=== PATIENT | female | born 1995 | race Caucasian/White ===

== ENCOUNTER 2016-06-23 16:27 | Observation (INO) | payer OTHER ==
[~2016-06-23] VITALS: Ht 160 cm; Wt 50.4 kg
[2016-06-23] MEDS ORDERED: LAMO25TA PO (16:50)
[2016-06-23] MEDS ORDERED: SERT50TA PO (16:50)
[2016-06-23] MEDS ORDERED: ACET-1256 PO (16:50)
[2016-06-23] MEDS ORDERED: ONDANSETRON INJ 2 MG/ML 2 ML VIAL IV STA ×2 (17:04)
[2016-06-23] MEDS ORDERED: GLUCAGON FOR INJ 1 MG VIAL IV STA (17:04)
--- NOTE | 2016-06-23 17:09 | EMERGENCY ROOM VISIT NOTE ---
History Report prepared by Lynn: Yoan Ac Under the Supervision of: Dr. Chin Martinez M.D. First contact with patient: 16:53 Chief Complaint: THROAT PAIN/INJURY Stated Complaint: CANT SWALLOW History of Present Illness The patient is a 20 year old female who presents to the Emergency Room with complaints of constantly being unable to swallow since prior to arrival. The patient took a Tylenol for knee pain, which is now stuck in her throat. She is having secretions. She has been unable to swallow since then. The throat is not sore or painful. The patient normally has trouble swallowing pills, and often only takes half a pill. Today she decided to take a whole Tylenol. Source of History: patient Onset: earlier today Position: throat Quality: other (cannot swallow) Timing: constant Associated Symptoms: No sorethroat Review of Systems See HPI for pertinent positives & negatives. A total of 10 systems reviewed and were otherwise negative. Past Medical & Surgical Medical Problems: (1) Bipolar II disorder Surgical Problems: (1) S/P tonsillectomy Family History Diabetes mellitus FH: cancer FH: heart disease FH: lung disease Hypertension Kidney disease Social History Smoking Status: Never Smoker Alcohol Use: occasionally Housing Status: lives with roommate Occupation Status: unemployed Current/Historical Medications Scheduled Acetaminophen (Tylenol), 500 MG PO DIRECTED Lamotrigine (Lamictal), 50 MG PO DAILY Sertraline (Zoloft), 50 MG PO DAILY Allergies Coded Allergies: Cefuroxime (Unverified Allergy, Unknown, UNKNOWN, 06/23/16) Sulfamethoxazole w/Trimethoprim (Unverified Allergy, Unknown, UNKNOWN, ) Physical Exam Vital Signs Date Time Temp Pulse Resp B/P Pulse Ox O2 Delivery O2 Flow Rate FiO2 06/23/16 18:33 78 20 112/67 98 Room Air 06/23/16 16:42 96 Room Air 06/23/16 16:40 37.0 69 20 116/77 97 Room Air Physical Exam CONSTITUTIONAL: Uncomfortable appearing. HEENT: No icterus, moist mucous membranes Unable to tolerate secretions. NECK: No meningismus, trachea is midline. CARDIOVASCULAR: Regular rate, normal perfusion RESPIRATORY: Unlabored breathing. Clear to auscultation. GASTROINTESTINAL: Non-tender GENITOURINARY: No flank tenderness MUSCULOSKELETAL: Full range of motion NEUROLOGIC: No acute gross focal deficits. PSYCHIATRIC: Normal affect SKIN: Normal for ethnicity. Medical Decision & Procedures Laboratory Results Test 06/23/16 17:52 06/23/16 19:10 Bedside Hemoglobin 15.3 g/dl (12.0-16.0) Bedside Hematocrit 45 % (37-47) Bedside Sodium 143 mEq/L (135-144) Bedside Potassium 4.3 mEq/L (3.3-5.0) Bedside Chloride 104 mEq/L (101-112) Bedside Total CO2 25 mEq/l (24-31) Anion Gap 19.0 mmol/L (16-25) Bedside Blood Urea Nitrogen 21 mg/dl (7-18) Bedside Creatinine 0.8 mg/dl Bedside Glucose (other) 63 mg/dl (70-99) Bedside Ionized Calcium (Nima) 1.18 mmol/l Human Chorionic Gonadotropin, Qual NEG (NEG) Labs reviewed by ED physician. Medications Administered Medications (Trade) Dose Ordered Sig/Noemi Route Start Time Stop Time Status Last Admin Dose Admin Ondansetron HCl (Zofran Inj) 4 mg NOW STAT IV 06/23/16 17:04 06/23/16 17:06 DC 06/23/16 17:44 4 MG Glucagon (Glucagon Inj) 2 mg NOW STAT IV 06/23/16 17:04 06/23/16 17:06 DC 06/23/16 17:04 2 MG ED Course 1700: Past medical records reviewed. The patient was evaluated in room B6. A complete history and physical examination was performed. 1704: Glucagon 2 mg IV, Zofran 4 mg IV. 1832: Discussed the case with the clinical consultant Ict Teacher. They are aware of the situation. 2000: The patient is being evaluated by Dr. Wray, Ict Teacher. She will have an EGD. Medical Decision Differential diagnosis includes esophageal impaction. 20-year-old presented to the emergency department several hours after swallowing a Tylenol pill which she had taken for mild knee pain and subsequently being unable to tolerate her secretions since then. She was given glucagon 2 mg IV and observed in the emergency room for 2 hours. Despite this she was unable to drink fluids as she would vomit. Therefore, GI consultation with Dr. Wray whom will evaluate pt. Impression Primary Impression: Impacted esophageal foreign body Scribe Attestation The scribe's documentation has been prepared under my direction and personally reviewed by me in its entirety. I confirm that the note above accurately reflects all work, treatment, procedures, and medical decision making performed by me. Departure Information Dispostion Other (Being Evaluated By Specialist) Patient Instructions My [facility]
[2016-06-23 18:08] LABS: ISTAT CREATININE 0.8 mg/dl; ISTAT HEMOGLOBIN 15.3 g/dl (12.0-16.0); ISTAT IONIZED CALCIUM 1.18 mmol/l
[2016-06-23] MEDS ORDERED: ATROPINE SULFATE 0.1 MG/ML 5ML SYR IV PRN (19:45)
[2016-06-23] MEDS ORDERED: PROMETHAZINE HCL INJ 6.25 MG in SODIUM CHLORIDE 0.9% 50ML 50 ML IV PRN (19:45)
[2016-06-23] MEDS ORDERED: ONDANSETRON INJ 2 MG/ML 2 ML VIAL IV PRN ×2 (19:45→23:45)
[2016-06-23] MEDS ORDERED: FENTANYL CITRATE INJ 50 MCG/1 ML 2 ML VIAL IV PRN (19:45)
[2016-06-23] MEDS ORDERED: EpHEDrine SULFATE INJ 50 MG/ML AMP IV PRN (19:45)
[2016-06-23 19:48] LABS: PREG INTERNAL NEGATIVE QC NEG CLEAR BACKGROUND; PREG INTERNAL POSITIVE QC POS CONTROL LINE
--- NOTE | 2016-06-23 20:05 | Gastroenterology Progress Note ---
Progress Note Date of Service: Jun 23, 2016 Subjective Pt evaluation today including: conversation w/ patient, physical exam, chart review, lab review, review of studies, review of inpatient medication list Consult by ER physician Dr Martinez for foreign body in esohagus CC pill stuck in esohagus HPI Pt has problems with swallowing pills and also occosional solid food slowing in esophagus for as long as she can remember. Never had to go to ER. Has some throat burning issues.Normally only takes about half a tylenol for knee pain. This am no breakfast but at 10 am took round generic acetaminophen and has not been able to handle saliva since. NO chest pain nor abd pain. NO gi bleeding, no change in bowels, no change in weight.No n/v. No liver disease or other GI diagnosis. NO blood relatives with esophageal problem. PMH Meds at home Tylenol, Zoloft, Lamotrigine Medical problems--depression Fhx neg for esophageal problems Shx Tob neg, ETOH once a month Review of Systems Constitutional: No chills, No fatigue, No fever, No problem reported, No see HPI, No sweats, No weakness, No weight loss Eyes: No diplopia, No discharge, No eye pain, No problem reported, No redness, No see HPI, No worsening of vision ENT: No dental problems, No hearing loss, No nasal symptoms, No pain on swallowing, No problem reported, No see HPI, No sore throat, No tinnitus, No trouble swallowing, No unusual epistaxis Respiratory: No cough, No dyspnea at rest, No dyspnea on exertion, No hemoptysis, No problem reported, No see HPI, No shortness of breath, No sputum, No wheezing Cardiac: No PND, No chest pain, No claudication, No edema, No orthopnea, No palpitations, No problem reported, No see HPI Musculoskeletal: + joint pain Neuro: No balance problems, No memory loss, No numbness/tingling, No paralysis , No problem reported, No see HPI, No vertigo, No weakness Psych: + depression symptoms Skin: No bleeding, No color change, No itch, No jaundice, No new/changing skin lesions, No problem reported, No rash, No see HPI Medications Current Inpatient Medications Medications (Trade) Dose Ordered Sig/Noemi Route Start Time Stop Time Status Last Admin Dose Admin Fentanyl Citrate (Fentanyl Inj) 50 mcg Q5M PRN IV 06/23/16 19:45 06/24/16 19:44 UNV Ondansetron HCl 4 mg 4 mg ONE PRN IV 06/23/16 19:45 UNV Promethazine HCl/ Sodium Chloride (Phenergan Inj/ Nss 50ml) 50.25 ml @ 202 mls/hr ONE PRN IV 06/23/16 19:45 UNV Ephedrine Sulfate (EpHEDrine SULFATE INJ) 5 mg Q5M PRN IV 06/23/16 19:45 06/24/16 19:44 UNV Atropine Sulfate (Atropine Sulfate 0.1MG/Ml Inj) 0.5 mg Q1M PRN IV 06/23/16 19:45 06/24/16 19:44 UNV Objective Vital Signs Date Time Temp Pulse Resp B/P Pulse Ox O2 Delivery O2 Flow Rate FiO2 06/23/16 18:33 78 20 112/67 98 Room Air 06/23/16 16:42 96 Room Air 06/23/16 16:40 37.0 69 20 116/77 97 Room Air Physical Exam General Appearance: WD/WN, no apparent distress ENT: hearing grossly normal, pharynx normal Neck: supple, no adenopathy Respiratory/Chest: lungs clear, normal breath sounds, no respiratory distress Cardiovascular: regular rate, rhythm, no edema Abdomen: normal bowel sounds, non tender, soft, no organomegaly, no pulsatile mass Neurologic/Psych: risk and insurance consultant II-XII nml as tested, alert, normal mood/affect, oriented x 3 Skin: normal color Laboratory Results Last 24 Hours Test 06/23/16 17:52 06/23/16 19:10 Bedside Hemoglobin 15.3 g/dl Bedside Hematocrit 45 % Bedside Sodium 143 mEq/L Bedside Potassium 4.3 mEq/L Bedside Chloride 104 mEq/L Bedside Total CO2 25 mEq/l Anion Gap 19.0 mmol/L Bedside Blood Urea Nitrogen 21 mg/dl Bedside Creatinine 0.8 mg/dl Bedside Glucose (other) 63 mg/dl Bedside Ionized Calcium (Nima) 1.18 mmol/l Human Chorionic Gonadotropin, Qual NEG Assessment and Plan Esophageal obstruction-- Dysphagia Discussed EGD with removal of foreign body versus chest operation to open esophagus. As discussed only reasonable option is EGD. Procedure and risks explained which include but not limited to medication reaction, bleeding, perforatin, aspiration, and missed lesions. Explained risk of bleeding and perforation increased with foreign body. Discussed the anesthesia may be deep sedation or general anesthesia depending on what we fine. Also goal is to remove foreign body not necessarily to treat condition causing it which would be done on f/u outpt EGD. Explained if esophagus already irritated want to minimize instrumentation.
[2016-06-23] MEDS ORDERED: PROPOFOL IV EMULSION 10 MG/ML 20 ML VIAL IV ONE (20:17)
[2016-06-23] MEDS ORDERED: LIDOCAINE HCL 2% 2 ML VIAL (20MG/ML) ONE (20:17)
[2016-06-23] MEDS ORDERED: SUCCINYLCHOLINE CHLORIDE 20 MG/ML 10 ML VIAL IV ONE (20:17)
[2016-06-23] MEDS ORDERED: ONDANSETRON INJ 2 MG/ML 2 ML VIAL ONE (20:17)
[2016-06-23] MEDS ORDERED: FENTANYL CITRATE INJ 50 MCG/1 ML 2 ML VIAL ONE (20:18)
[2016-06-23] MEDS ORDERED: ROCURONIUM BROMIDE 10 MG/ML 5 ML VIAL ONE (20:18)
--- NOTE | 2016-06-23 21:31 | Anesthesiology Progress Note ---
Anesthesia Post Op Note Date & Time Jun 23, 2016 at 21:31 Vital Signs Pain Intensity: 0 Vital Signs Past 12 Hours Date Time Temp Pulse Resp B/P Pulse Ox O2 Delivery O2 Flow Rate FiO2 06/23/16 18:33 78 20 112/67 98 Room Air 06/23/16 16:42 96 Room Air 06/23/16 16:40 37.0 69 20 116/77 97 Room Air Notes Mental Status: alert / awake / arousable, participated in evaluation Pt Amnestic to Procedure: Yes Nausea / Vomiting: adequately controlled Pain: adequately controlled Airway Patency, RR, SpO2: stable & adequate BP & HR: stable & adequate Hydration State: stable & adequate Anesthetic Complications: no major complications apparent
--- NOTE | 2016-06-23 21:36 | GI REPORT ---
Procedure Date: 06/23/2016 8:24 PM THIS REPORT HAS BEEN AMENDED Addendum Number: 1 Addendum Date: 06/23/2016 9:37:19 PM Pictures taken during the case and inadvertently not added to report. Addendum Number: 2 Addendum Date: 06/23/2016 9:43:51 PM was able to recover pictures as noted above now Procedure: Upper GI endoscopy Indications: Foreign body in the esophagus Medicines: General Anesthesia Complications: No immediate complications. Estimated blood loss: Minimal. Estimated Blood Loss: Estimated blood loss was minimal. Procedure: Pre-Anesthesia Assessment: - The risks and benefits of the procedure and the sedation options and risks were discussed with the patient. All questions were answered and informed consent was obtained. - Patient identification and proposed procedure were verified prior to the procedure by the physician, the anesthesiologist and the central sterilization technician. The procedure was verified in the procedure room. - Procedure and risks explained to patient which include but not limited to medication reaction, bleeding, perforation, aspiration , and missed lesions. After obtaining informed consent, the endoscope was passed under direct vision. Throughout the procedure, the patient's blood pressure, pulse, and oxygen saturations were monitored continuously. The scope was introduced through the mouth, and advanced to the middle third of esophagus. Judicious gas insufflation was used and gas removal done on the way out. The lumen was always visualized when advancing the scope. Scope passed easily past upper esophageal sphincter and advanced to where pill noted at 20 cm in mid esophagus. Julien forceps used to attempt to bring pill up but broke pill into fragments which passed. There was stricture noted where pill was obstructed. Stricture with probable ulceration was noted to be smaller than the scope so did not attempt to advance furher. Did lavage esophagus with 300 ml of fluid and none came up suggesting no further obstruction. No damage from manipulation noted. Was bringing scope back out to examine the upper esophagus and fresh mucosal laceration noted. No obvious perforation. Placed one clip to attempt to close this but only one side held. Was able to successfully use second clip to close in mid portion and seemed successful. Very small area to work so was not able to place further clips for fear would damage esophagus. Other than pill nothing else in esophagus.. The upper GI endoscopy was accomplished with ease. The patient tolerated the procedure well. Findings: Mucosal changes including ringed esophagus, feline appearance, small-caliber esophagus and crepe paper esophagus were found in the upper third and middle third of the esophagus. Pill were found in the middle third of the esophagus. Removal was accomplished with a Julien grasper. A bleeding mucosal tear as a result of scope trauma was found in the upper third of the esophagus. This was large in size. To prevent bleeding, one hemostatic clips were successfully placed and a second only held on one edge. There was no bleeding at the end of the procedure. Estimated blood loss was minimal. Impression: - Esophageal mucosal changes suspicious for eosinophilic esophagitis. - Pill were found in the esophagus. Removal was successful. - Incidental mucosal tear in the upper third of the esophagus. No difficulty passing scope and no obvious stricture so suggest mucosa tears easily from esosinophilic esophagitis. Clips were placed. Recommendation: - Admit the patient to [facility]. - Discussed with DR Rice of hospitalist service who will admit and told him low threshold to get CT of chest if has any signs of esophageal perforation and to keep NPO with IVF for now. Dru Wray M.D. Dru Wray MD 06/23/2016 9:35:59 PM This report has been signed electronically. Note Initiated On: 06/23/2016 8:24 PM Dru Wray M.D. Dru Wray MD 06/23/2016 9:38:29 PM This report has been signed electronically. Dru Wray M.D. rDu Wray MD 06/23/2016 9:44:16 PM This report has been signed electronically.
--- NOTE | 2016-06-23 22:04 | Progress Note ---
Progress Note Pt seen in ICU recovery bed. Awake and alert. Can swallow. No abdominal pain or chest pain. Minimal sore throat. Explained procedure and mucosal tear upper esopahagus noted with need for inpatient overnight observation. Chest clear, no crepitus. abdomen positive bowel sounds, no guarding nor rebound. [facility]
[2016-06-23] MEDS ORDERED: LORAZEPAM 2 MG/ML 1 ML VIAL IV STA (23:38)
[2016-06-23 23:58] VITALS: BP 108/63; PULSE 83; TEMP 36.9; O2SAT 95; Ht 160 cm; Wt 50.4 kg
[2016-06-24] MEDS ORDERED: LORAZEPAM INJ 0.5 MG in SYRINGE 0.75 ML IV STA (00:08)
[2016-06-24] MEDS: D5W AND NSS 1,000 ML IV SCH ×2 (00:22→07:53)
[2016-06-24] MEDS: ACETAMINOPHEN IV 1,000 MG in EMPTY BAG 0 ML IV SCH ×2 (00:27→07:53)
[2016-06-24 00:34] VITALS: BP 102/60; PULSE 73; TEMP 36.9; O2SAT 96
[2016-06-24] MEDS ORDERED: IV FLUIDS COMPLETED PRN (00:45)
[2016-06-24 02:13] VITALS: BP 85/52; PULSE 73; TEMP 36.6; O2SAT 96
--- NOTE | 2016-06-24 02:24 | History and Physical ---
History & Physical Date & Time of Service: Jun 24, 2016 at 02:15 Chief Complaint: Esophagitis Primary Care Physician: No Doctor, Assigned History of Present Illness Source: patient 20 y/o F w/Hx Bipolar disease and dysphagia. She has a tendency to get pills stuck in her throat which occurred this evening after she took some tylenol. The associated discomfort did not resolve and she felt like she could not swallow her salive. She presented to the ER for evaluation. She was evaluated by the GI service and underwent endoscopy where pill fragments were successfully removed. The endoscopy also revealed a considerable esophageal stricture in addition to a mucosal tear which required clipping. She is admitted for overnight observation to monitor for bleeding. She denies symptoms of pain or N/V post endoscopy. Past Medical/Surgical History Medical Problems: (1) Bipolar II disorder Status: Chronic 2) Dysphagia with episodes of pill esophagitis Surgical Problems: (1) S/P tonsillectomy Status: Resolved Family History Diabetes mellitus FH: cancer FH: heart disease FH: lung disease Hypertension Kidney disease Social History Smoking Status: Never Smoker Occupational Status: unemployed Allergies Coded Allergies: Cefuroxime (Unverified Allergy, Unknown, UNKNOWN, 06/23/16) Sulfamethoxazole w/Trimethoprim (Unverified Allergy, Unknown, UNKNOWN, ) Home Medications Scheduled Acetaminophen (Tylenol), 500 MG PO DIRECTED Lamotrigine (Lamictal), 50 MG PO DAILY Sertraline (Zoloft), 50 MG PO DAILY Review of Systems Constitutional: No chills, No fever, No sweats Eyes: No worsening of vision ENT: + problem reported (Pill stuck im throat), + sore throat, + trouble swallowing, No hearing loss, No nasal symptoms, No unusual epistaxis Respiratory: No cough, No sputum, No wheezing Musculoskeletal: No joint pain Genitourinary - Female: No dysuria, No urinary frequency, No urinary urgency Neurologic: No memory loss, No paralysis, No weakness Psychiatric: No depression symptoms Endocrine: No fatigue Hematologic / Lymphatic: No abnormal bleeding/bruising Integumentary: No rash Allergic / Immunologic: No environmental allergies Physical Exam Vital Signs Date Time Temp Pulse Resp B/P Pulse Ox O2 Delivery O2 Flow Rate FiO2 06/24/16 00:34 36.9 73 16 102/60 96 Room Air 06/24/16 00:09 Room Air 06/23/16 23:58 36.9 83 16 108/63 95 Room Air 06/23/16 23:45 77 18 112/86 97 Room Air 06/23/16 23:30 80 18 122/82 97 Room Air 06/23/16 23:15 72 18 118/75 96 Room Air 06/23/16 23:00 83 18 117/63 95 Room Air 06/23/16 22:45 84 18 109/78 95 Room Air 06/23/16 22:30 88 18 118/70 99 Room Air 06/23/16 22:20 76 18 116/75 99 Room Air 06/23/16 22:05 80 18 122/70 99 Room Air 06/23/16 21:55 36.3 79 18 128/76 99 Room Air 06/23/16 21:45 80 18 112/71 98 Room Air 06/23/16 21:35 71 16 122/73 98 Room Air 06/23/16 21:25 78 16 106/54 96 Room Air 06/23/16 21:15 36.4 70 16 127/86 94 Room Air 06/23/16 18:33 78 20 112/67 98 Room Air 06/23/16 16:42 96 Room Air 06/23/16 16:40 37.0 69 20 116/77 97 Room Air General Appearance: WD/WN, no apparent distress, + thin, + pertinent finding ( Pleasant young female resting comfortably ) Head: normocephalic Eyes: normal inspection ENT: normal ENT inspection, pharynx normal Neck: supple, no JVD Respiratory/Chest: chest non-tender, no accessory muscle use Cardiovascular: regular rate, rhythm, no edema, no gallop Abdomen/GI: normal bowel sounds, non tender, soft Back: normal inspection, no CVA tenderness Extremities/Musculoskelatal: normal inspection, no calf tenderness, normal capillary refill, no pedal edema, normal range of motion Neurologic/Psych: diamond setter apprentice II-XII nml as tested, no motor/sensory deficits, alert Skin: normal color, warm/dry, no rash Diagnostics Laboratory Results Results Past 24 Hours Test 06/23/16 17:52 06/23/16 19:10 Range/Units Bedside Hemoglobin 15.3 12.0-16.0 g/dl Bedside Hematocrit 45 37-47 % Bedside Sodium 143 135-144 mEq/L Bedside Potassium 4.3 3.3-5.0 mEq/L Bedside Chloride 104 101-112 mEq/L Bedside Total CO2 25 24-31 mEq/l Anion Gap 19.0 16-25 mmol/L Bedside Blood Urea Nitrogen 21 7-18 mg/dl Bedside Creatinine 0.8 mg/dl Bedside Glucose (other) 63 70-99 mg/dl Bedside Ionized Calcium (Nima) 1.18 mmol/l Human Chorionic Gonadotropin, Qual NEG NEG Impression Assessment and Plan 20 y/o F w/Hx Bipolar disease and dysphagia. She has a tendency to get pills stuck in her throat which occurred this evening after she took some Tylenol. The associated discomfort did not resolve and she presented to the ER for evaluation. She was evaluated by the GI service and underwent endoscopy where pill fragment were removed. The endoscopy also revealed a considerable esophageal stricture in addition to a mucosal tear which required treatment with clips. She is admitted for overnight observation to monitor for bleeding. She denies symptoms of pain, N/V post endoscopy. Pt will be monitored on the medical floor and reevaluated by GI in the AM - if there is no evidence of complications and she can tolerate PO, she can likely be D/Cd. She states that she can hold off on her Bipolar medication for a 24 hr period without issue SCDs for prophylaxis - full code Total time for this admit including med rec, review of andoscopy report - discussion with GI attending and pt 27 min Level of Care Med/Surg Advanced Directives Existing Advance Directive: No Existing Living Will: No Existing Power of Shipfitters Supervisor: No Resuscitation Status FULL RESUSCITATION VTE Prophylaxis VTE Risk Assessment Done? Y/N: Yes Risk Level: Very Low Given or contraindicated: SCD's
[2016-06-24 04:09] VITALS: BP 81/46; PULSE 66; TEMP 36.7; O2SAT 98
[2016-06-24 07:40] VITALS: BP 91/54; PULSE 70; TEMP 36.7; O2SAT 97
[2016-06-24 09:13] LABS: BASO % 0.4 %; BASO ABS # 0.02 K/uL (0-0.2); COMPLETE YES; HEMATOCRIT 38.6 % (37-47); LYMPH % 32.2 %; LYMPH ABS # 1.53 K/uL (1.2-3.4); MEAN CELL VOLUME 88.1 fL (80-100); MEAN CORPUSCULAR HEMOGLOBIN 30.4 pg (25-34); MEAN CORPUSCULAR HGB CONC 34.5 g/dl (32-36); MEAN PLATELET VOLUME 9.8 fL (7.4-10.4); MONO % 6.7 %; NEUT % 56.7 %; PLATELET COUNT 202 K/uL (130-400); RED BLOOD COUNT 4.38 M/uL (4.2-5.4); WHITE BLOOD COUNT 4.75 K/uL (4.8-10.8)
[2016-06-24] MEDS ORDERED: FLUTICASONE HFA 220 MCG INHALER INH SCH (11:30)
[2016-06-24 12:06] VITALS: BP 98/64; PULSE 65; TEMP 36.5; O2SAT 97
[2016-06-24] MEDS ORDERED: FLVHFA220 PO (13:29)
--- NOTE | 2016-06-24 15:05 | Gastroenterology Progress Note ---
Progress Note Date of Service: Jun 24, 2016 Subjective Pt evaluation today including: conversation w/ patient, physical exam, chart review, lab review, review of studies, review of inpatient medication list CC F/u dysphagia, esophageal mucosal tear HPI No abd pain nor chest pain. Tolerated clear liquids and full liquid diet. Review of Systems Respiratory: No shortness of breath Cardiac: No chest pain Medications Current Inpatient Medications Medications (Trade) Dose Ordered Sig/Noemi Route Start Time Stop Time Status Last Admin Dose Admin Ondansetron HCl 4 mg 4 mg Q6H PRN IV 06/23/16 23:45 07/23/16 23:44 Acetaminophen 1000 mg/Empty Bag 100 ml @ 400 mls/hr Q8H IV 06/24/16 00:00 07/24/16 00:00 06/24/16 07:53 400 MLS/HR Dextrose/Sodium Chloride (D5W And Nss) 1,000 ml @ 100 mls/hr Q10H IV 06/23/16 23:45 07/23/16 23:44 06/24/16 07:53 100 MLS/HR Miscellaneous (Iv Fluids Completed) 1 ea PRN PRN N/A 06/24/16 00:45 06/24/17 00:44 Fluticasone Propionate (Flovent Hfa 220MCG Inhaler) 2 puffs BID INH 06/24/16 11:30 07/24/16 11:29 06/24/16 11:30 2 PUFFS Objective Vital Signs Date Time Temp Pulse Resp B/P Pulse Ox O2 Delivery O2 Flow Rate FiO2 06/24/16 12:06 36.5 65 18 98/64 97 Room Air 06/24/16 08:47 Room Air 06/24/16 07:40 36.7 70 18 91/54 97 06/24/16 04:09 36.7 66 16 81/46 98 Room Air 06/24/16 02:13 36.6 73 16 85/52 96 Room Air 06/24/16 00:34 36.9 73 16 102/60 96 Room Air 06/24/16 00:09 Room Air 06/23/16 23:58 36.9 83 16 108/63 95 Room Air 06/23/16 23:45 77 18 112/86 97 Room Air 06/23/16 23:30 80 18 122/82 97 Room Air 06/23/16 23:15 72 18 118/75 96 Room Air 06/23/16 23:00 83 18 117/63 95 Room Air 06/23/16 22:45 84 18 109/78 95 Room Air 06/23/16 22:30 88 18 118/70 99 Room Air 06/23/16 22:20 76 18 116/75 99 Room Air 06/23/16 22:05 80 18 122/70 99 Room Air 06/23/16 21:55 36.3 79 18 128/76 99 Room Air 06/23/16 21:45 80 18 112/71 98 Room Air 06/23/16 21:35 71 16 122/73 98 Room Air 06/23/16 21:25 78 16 106/54 96 Room Air 06/23/16 21:15 36.4 70 16 127/86 94 Room Air 06/23/16 18:33 78 20 112/67 98 Room Air 06/23/16 16:42 96 Room Air 06/23/16 16:40 37.0 69 20 116/77 97 Room Air Physical Exam General Appearance: WD/WN, no apparent distress Respiratory/Chest: lungs clear, no respiratory distress Cardiovascular: regular rate, rhythm Abdomen: normal bowel sounds, non tender, soft, no organomegaly, no pulsatile mass Laboratory Results Last 24 Hours Test 06/23/16 17:52 06/23/16 19:10 06/24/16 09:02 Bedside Hemoglobin 15.3 g/dl Bedside Hematocrit 45 % Bedside Sodium 143 mEq/L Bedside Potassium 4.3 mEq/L Bedside Chloride 104 mEq/L Bedside Total CO2 25 mEq/l Anion Gap 19.0 mmol/L Bedside Blood Urea Nitrogen 21 mg/dl Bedside Creatinine 0.8 mg/dl Bedside Glucose (other) 63 mg/dl Bedside Ionized Calcium (Nima) 1.18 mmol/l Human Chorionic Gonadotropin, Qual NEG White Blood Count 4.75 K/uL Red Blood Count 4.38 M/uL Hemoglobin 13.3 g/dL Hematocrit 38.6 % Mean Corpuscular Volume 88.1 fL Mean Corpuscular Hemoglobin 30.4 pg Mean Corpuscular Hemoglobin Concent 34.5 g/dl Platelet Count 202 K/uL Mean Platelet Volume 9.8 fL Neutrophils (%) (Auto) 56.7 % Lymphocytes (%) (Auto) 32.2 % Monocytes (%) (Auto) 6.7 % Eosinophils (%) (Auto) 4.0 % Basophils (%) (Auto) 0.4 % Neutrophils # (Auto) 2.69 K/uL Lymphocytes # (Auto) 1.53 K/uL Monocytes # (Auto) 0.32 K/uL Eosinophils # (Auto) 0.19 K/uL Basophils # (Auto) 0.02 K/uL RDW Standard Deviation 39.6 fL RDW Coefficient of Variation 12.3 % Immature Granulocyte % (Auto) 0.0 % Immature Granulocyte # (Auto) 0.00 K/uL Assessment and Plan Esophageal stricture--mid esophagus--etiology of the pill obstruction and likely caused by eosinophilic esophagitis Eosinophiliic esophagitis Upper esophageal mucosal tear s/p clipping---no indication clinically of perforation so can be DCed today. Told patient to go to ER if has chest pain. abd pain, fever, cough. Dysphagia Drop in H and H likely dilutional since she had been NPO for long while before coming in. NO stools to indicate GI bleeding. Discussed with patient needs to be on Fluticasone 220 two puffs taken orally bid and also Prilosec OTC (empty capsule) once daily to treat probable eosinophilic esophagitits. I did not biopsy because of the mucosal tear issue but case severe enough I recommend treatment based on my observation. She is to call my GI office for appointment this week. I also stated she need to be on liquid or pudding consistency diet. NO solid food and no solid pills (need crushed). Also told her to avoid alchohol and NSAIDs except for tylenol.
[2016-06-24 15:26] VITALS: BP 98/64; PULSE 65; TEMP 36.5; O2SAT 97
[2016-06-24] MEDS ORDERED: PRLSR20 PO (15:44)
--- NOTE | 2016-06-24 15:48 | Discharge Instructions ---
Discharge Instructions Admission Reason for Admission: Esophagitis Discharge Discharge Diagnosis / Problem: Eosinophiliic esophagitis Discharge Goals Goal(s): Decrease discomfort Activity Recommendations Activity Limitations: resume your previous activity . Instructions / Follow-Up Instructions / Follow-Up Please call the GI doctor and schedule an appointment in 1 week. Please follow up with primary care doctor in 1 Week. Current Hospital Diet Patient's current hospital diet: Full Liquid Diet Discharge Diet Recommended Diet: Full Liquid Diet (pudding consisted diet. NO solid food) Diet Texture: Pureed (blended smooth) Procedures Procedures Performed: Esophagogastroduodenoscopy Pending Studies Studies pending at discharge: no Medical Emergencies . Who to Call and When: Medical Emergencies: If at any time you feel your situation is an emergency, please call 911 immediately. . Non-Emergent Contact Non-Emergency issues call your: Primary Care Provider . . "Provider Documentation" section prepared by John Montenegro. VTE Core Measure Inpt VTE Proph given/why not?: SCD's
--- NOTE | 2016-06-24 17:36 | Discharge Summary ---
Discharge Summary Admission Date: Jun 23, 2016 at 23:41 Discharge Date: Jun 24, 2016 Discharge Disposition: Home Principal Diagnosis: Eosinophiliic esophagitis Procedures: Upper GI endoscopy showed esophageal mucosal changes suspicious for eosinophilic esophagitis. Incidental mucosal tear in the upper 3rd of the esophagus required clipping. (John Montenegro MD) Medication Reconciliation New Medications: Omeprazole (Prilosec) 20 Mg Capcr 20 MG PO DAILY for 30 Days, #30 CAP make sure to break the capsule and sparkle in apple sauce or liquid. Fluticasone Propionate (Flovent Hfa) 120 Puffs/57095 Mcg Aero 2 PUFFS PO BID for 30 Days two puffs swallowed twice daily Continued Medications: Lamotrigine (Lamictal) 25 Mg Tab 50 MG PO DAILY, TAB Sertraline (Zoloft) 50 Mg Tab 50 MG PO DAILY, TAB Discontinued Medications: Acetaminophen (Tylenol) 500 Mg Tab 500 MG PO DIRECTED, TAB Referrals At Discharge Follow up Referrals: Family Practice Referral - Within 1 Week with John Montenegro MD [employer]ice Referral - Within 1 Week with Dru Wray M.D. Discharge Exam Review of Systems: Constitutional: No chills, No fever Respiratory: No cough, No shortness of breath, No wheezing Abdomen: No GI bleeding, No constipation, No diarrhea, No nausea, No pain, No vomiting Musculoskeletal: No muscle pain Genitourinary - Female: No dysuria, No hematuria Integumentary: No rash Physical Exam: General Appearance: no apparent distress Neck: supple, no JVD, trachea midline Respiratory/Chest: chest non-tender, lungs clear, normal breath sounds, no respiratory distress Cardiovascular: regular rate, rhythm, no edema, no JVD Abdomen / GI: normal bowel sounds, non tender, soft Extremities: no calf tenderness, no pedal edema, non-tender Neurologic/Psychiatric: alert, normal mood/affect, oriented x 3 Skin: normal color, warm/dry, no rash (John Montenegro MD) Hospital Course This is 20 y/o F w/ hx Bipolar disease and dysphagia. She has a tendency to get pills stuck in her throat which occurred again after she took some Tylenol. The associated discomfort did not resolve and she felt like she could not swallow her saliva. She presented to the ER for evaluation. She was evaluated by the GI service and underwent endoscopy where pill fragments were successfully removed. The endoscopy also revealed esophageal strictures and esophageal changes suspicious for eosinophilic esophagitis. There was also incidental mucosal tear which required clipping. She was admitted for overnight observation to monitor for bleeding. Per patient she is experiencing this problem for almost 10 years now and never seen by any GI doctor. Overnight there was no acute events. She was started on liquid diet and tolerated well. Denies nausea, vomiting, hematemesis or any other additional complaints. Patient was evaluated by GI in the morning and was stable to be discharge home. Per GI patient has severe eosinophilic esophagitis and will need serial dilation. Patient was prescribed Flovent 2 puffs to swallow and Prilosec 20mg daily. Patient will follow up with GI in 1 week and PCP in 1 week. Patient was instructed to eat only liquid and pudding consisted diet. NO solid foods or pills. Instructed to crush all the pills. Total Time Spent: Less than 30 minutes This includes examination of the patient, discharge planning, medication reconciliation, and communication with other providers. (John Montenegro MD) Discharge Instructions Please refer to the electronic Patient Visit Report (Discharge Instructions) for additional information. (John Montenegro MD) Reviewed: Pt Seen/Exam by Me, OPAL Notes, Labs, RAD (Diana Suarez MD) History Resident Physician Supervision Note: I was present with Dr. Montenegro during the history and exam. I discussed the case with the resident and agree with the findings and plan as documented in the note. Any exceptions or clarifications are listed here: Pt much improved after pill removed during EGD. Had mucosal tear from scope trauma given highly friable esophagus with severe suspected EE as per my d/w GI today. SHe is osmin full liquids and no evidence of bleeding or esophageal rupture. Vitals reviewed NAD, AAOx3, pleasant RRR no mgr nl S1S2, no ttp over chest CTAB no wcr Abd soft, nt nd +BS Ext no edema SKin no rashes A?P: 20 yo female with suspected severe EE with stricture and extremely friable esophageal mucosa. Meds as above and GI f/u crucial. Advised only soft diet, no edges on foods, no pills, crush all meds and take with applesauce. F/u PCP and GI within 1 week Documented By: Diana Suarez (Diana Suarez MD)
[2016-07-30] MEDS ORDERED: PRLSR20 PO (09:46)
[2016-07-30] MEDS ORDERED: SERT50TA PO (09:46)
[2016-07-30] MEDS ORDERED: LAMO1TAB21 PO (09:46)
== END 2016-06-24 16:30 | disposition home or self-care (01) ==
LOC: EEVIPCON 16:29 → C.EDB 16:29 → C.MSW 23:41
PROVIDERS: ADMIT Internal Medicine; ATTEND Family Medicine
DX: T18.198A Other foreign object in esophagus causing other injury, initial encounter (principal); K91.71 Accidental puncture and laceration of a digestive system organ or structure during a digestive system procedure; K22.2 Esophageal obstruction; F31.81 Bipolar II disorder; Z79.899 Other long term (current) drug therapy; Z83.3 Family history of diabetes mellitus; Z82.49 Family history of ischemic heart disease and other diseases of the circulatory system; Y83.8 Other surgical procedures as the cause of abnormal reaction of the patient, or of later complication, without mention of misadventure at the time of the procedure; Y92.234 Operating room of hospital as the place of occurrence of the external cause; Y99.8 Other external cause status

== ENCOUNTER → 2016-08-02 | Day surgery (SDC) | payer OTHER ==
[2016-07-30 09:46] VITALS: Ht 162.6 cm; Wt 52.3 kg
[~2016-08-02] VITALS: Ht 162.6 cm; Wt 52.3 kg
[~2016-08-02] MED LIST: FLVHFA220 PO; LAMO1TAB21 PO; LIDOCAINE HCL 2% 2 ML VIAL (20MG/ML) ONE; MIDAZOLAM HCL 1 MG/ML 2ML VIAL ONE; PRLSR20 PO; PROPOFOL IV EMULSION 10 MG/ML 20 ML VIAL IV ONE; SERT50TA PO; SODIUM CHLORIDE 0.9% 500ML 500 ML IV ONE
--- NOTE | 2016-08-02 14:32 | Endo History and Physical ---
History & Physical Date of Service: Aug 02, 2016. Chief Complaint: Esophageal Obstruction Referring Physician: No Primary care doctor History of Present Illness dysphagia Past Surgical History Hx Cardiac Surgery: No Hx Internal Defibrillator: No Hx Pacemaker: No Hx Abdominal Surgery: No Hx of Implantable Prosthesis: No Hx Post-Op Nausea and Vomiting: No Hx Cancer Surgery: No Hx Thoracic Surgery: No Hx Orthopedic: Yes (FINGER CYST REMOVAL) Hx Urinary Tract Surgery: No Family History None Social History Smoking Status: Never Smoker Hx Substance Use: No Hx Alcohol Use: Yes (OCCASSIONALLY) Allergies Coded Allergies: Azithromycin (Verified Allergy, Unknown, RASH, 08/02/16) Cefuroxime (Unverified Allergy, Unknown, rash, 08/02/16) Sulfamethoxazole w/Trimethoprim (Unverified Allergy, Unknown, tongue swelling, 08/02/16) Current Medications Reported Home Medications Medications Dose Route/Sig Max Daily Dose Days Date Category Dose Instructions Zoloft (Sertraline HCl) 50 Mg Tab 50 Mg PO QAM 07/30/16 Reported Lamotrigine 100 Mg Tab 0.5 Tab PO QPM 30 07/30/16 Reported Prilosec (Omeprazole) 20 Mg Capcr 20 Mg PO QPM 07/30/16 Reported Flovent Hfa (Fluticasone Propionate) 120 Puffs/78039 Mcg Aero 2 Puffs PO BID 30 06/24/16 Rx two puffs swallowed twice daily Vital Signs Weight (Kilograms): 52.27 Height (Feet): 5 Height (Inches): 4 Date Time Temp Pulse Resp B/P Pulse Ox O2 Delivery O2 Flow Rate FiO2 08/02/16 13:41 36.9 54 16 103/62 98 Room Air Physical Exam AAo x3 Nl s1s2 Lungs CTA Abd soft NT ND + BS - CCE Assessment and Plan EGD with dysphagia
--- NOTE | 2016-08-02 15:25 | Anesthesiology Progress Note ---
Anesthesia Post Op Note Date & Time Aug 02, 2016 at 15:25 Vital Signs Pain Intensity: 0 Vital Signs Past 12 Hours Date Time Temp Pulse Resp B/P Pulse Ox O2 Delivery O2 Flow Rate FiO2 08/02/16 13:41 36.9 54 16 103/62 98 Room Air Notes Mental Status: alert / awake / arousable Nausea / Vomiting: adequately controlled Pain: adequately controlled Airway Patency, RR, SpO2: stable & adequate BP & HR: stable & adequate Hydration State: stable & adequate Anesthetic Complications: no major complications apparent
--- NOTE | 2016-08-02 15:28 | Discharge Instructions ---
Endoscopy Patient Instructions Date / Procedure(s) Performed Aug 02, 2016. EGD Allergy Information Coded Allergies: Azithromycin (Verified Allergy, Unknown, RASH, 08/02/16) Cefuroxime (Unverified Allergy, Unknown, rash, 08/02/16) Sulfamethoxazole w/Trimethoprim (Unverified Allergy, Unknown, tongue swelling, 08/02/16) Discharge Date / Findings Aug 02, 2016. EGD with bx; dilation of rings; suspect EoE Medication Instructions Restart Stopped Medication(s): Reported Home Medications Medications Dose Route/Sig Max Daily Dose Days Date Category Dose Instructions Zoloft (Sertraline HCl) 50 Mg Tab 50 Mg PO QAM 07/30/16 Reported Lamotrigine 100 Mg Tab 0.5 Tab PO QPM 30 07/30/16 Reported Prilosec (Omeprazole) 20 Mg Capcr 20 Mg PO QPM 07/30/16 Reported Flovent Hfa (Fluticasone Propionate) 120 Puffs/46229 Mcg Aero 2 Puffs PO BID 30 06/24/16 Rx two puffs swallowed twice daily Reported Home Medications Medications Dose Route/Sig Max Daily Dose Days Date Category Dose Instructions Zoloft (Sertraline HCl) 50 Mg Tab 50 Mg PO QAM 07/30/16 Reported Lamotrigine 100 Mg Tab 0.5 Tab PO QPM 30 07/30/16 Reported Prilosec (Omeprazole) 20 Mg Capcr 20 Mg PO QPM 07/30/16 Reported Flovent Hfa (Fluticasone Propionate) 120 Puffs/74095 Mcg Aero 2 Puffs PO BID 30 06/24/16 Rx two puffs swallowed twice daily Provider Instructions Activity Restrictions - No exercising or heavy lifting for 24 hours. - Do not drink alcohol the day of the procedure. - Do not drive a car or operate machinery until the day after the procedure. - Do not make any important decisions or sign important papers in 24 hours after the procedure. Following Day: - Return to full activity which may include returning to work/school. Diet Start your diet with liquids and light foods (jello, soup, juice, toast). Then eat your usual diet if not nauseated. Treatment For Common After Affects For mild abdominal pain, bloating, or excessive gas: - Rest - Eat lightly - Lie on right side Follow-Up Information Follow-up with No Primary care doctor as scheduled Anesthesia Information What You Should Know You have had a procedure that required some medicine to reduce anxiety and discomfort. This treatment is called moderate sedation. After receiving the treatment, you may be sleepy, but you will be able to breathe on your own. The effects of the treatment may last for several hours. Follow these instructions along with Activity/Diet recommendations noted above: * Do NOT do anything where dizziness or clumsiness would be dangerous. * Rest quietly at home today, then you can be up and about tomorrow. * Have a responsible person stay with you the rest of today. * You may have had an I.V. today. If so, you may take the dressing off later today. Recommendations Call your doctor if: * Trouble breathing * Continuous vomiting for more than 24 hours * Temperature above 101 degrees * Severe abdominal pain or bloating * Pain not relieved by pain medicine ordered * There is increased drainage or redness from any incision * A large amount of rectal bleeding greater than 2-3 tablespoons. (If you had a polyp/s removed or have hemorrhoids, a small amount of blood - from the rectum is to be expected.) * You have any unanswered questions or concerns. IN THE EVENT OF A SERIOUS EMERGENCY, GO TO THE NEAREST EMERGENCY ROOM Your discharge instructions were prepared by provider Sanjay Zuniga. Patient Instructions Signature Page Emilia Khan Patient (or Guardian) Signature/Date: I have read and understand the instructions given to me by my caregivers. Caregiver/RN/Doctor Signature/Date: The above-named patient and/or guardian has received patient instructions on this date. + Original Patient Signature Page (only) stays with chart. Please make copy for patient.
[2016-08-02 15:53] VITALS: BP 106/69; PULSE 54; O2SAT 100
--- NOTE | 2016-08-03 00:46 | GI REPORT ---
Procedure Date: 08/02/2016 2:21 PM Procedure: Upper GI endoscopy Indications: Dysphagia, Foreign body in the esophagus Medicines: Propofol per Anesthesia Complications: No immediate complications. Estimated blood loss: Minimal. Estimated Blood Loss: Estimated blood loss was minimal. Procedure: Pre-Anesthesia Assessment: - Prior to the procedure, a History and Physical was performed, and patient medications and allergies were reviewed. The patient's tolerance of previous anesthesia was also reviewed. The risks and benefits of the procedure and the sedation options and risks were discussed with the patient. All questions were answered, and informed consent was obtained. Prior Anticoagulants: The patient has taken no previous anticoagulant or antiplatelet agents. ASA Grade Assessment: I - A normal, healthy patient. After reviewing the risks and benefits, the patient was deemed in satisfactory condition to undergo the procedure. After obtaining informed consent, the endoscope was passed under direct vision. Throughout the procedure, the patient's blood pressure, pulse, and oxygen saturations were monitored continuously. The On-site loaner was introduced through the mouth, and advanced to the second part of duodenum. The upper GI endoscopy was accomplished without difficulty. The patient tolerated the procedure well. Findings: Clip were found in the upper third of the esophagus. Mucosal changes including ringed esophagus, circumferential folds and stenosis (scope passed with resistance) were found in the entire esophagus. Biopsies were obtained after dilation as described below from the proximal and distal esophagus with cold forceps for histology of suspected eosinophilic esophagitis. Estimated blood loss was minimal. Estimated blood loss was minimal. Verification of patient identification for the specimen was done by the physician and train electronic technician using the patient's name and medical record number. A guidewire was placed and the scope was withdrawn. Dilation was performed with a Savary dilator with no resistance at 30 Fr and 33 Fr and mild resistance at 39 Fr and 42 Fr. The entire examined stomach was normal. The examined duodenum was normal. Biopsies for histology were taken with a cold forceps for evaluation of celiac disease. Estimated blood loss was minimal. Verification of patient identification for the specimen was done by the physician and train electronic technician using the patient's name and medical record number. The cardia and gastric fundus were normal on retroflexion. Retained gastric contents are not identified on this exam. Impression: - Esophageal mucosal changes consistent with eosinophilic esophagitis. Biopsied. Dilated. - Normal stomach. - Normal examined duodenum. Biopsied. Recommendation: - Patient has a contact number available for emergencies. The signs and symptoms of potential delayed complications were discussed with the patient. Return to normal activities tomorrow. Written discharge instructions were provided to the patient. - Discharge patient to home (ambulatory). - Soft diet for 2 days. - Continue present medications. - Await pathology results. MD Sanjay Steiner MD 08/02/2016 3:41:00 PM This report has been signed electronically. Note Initiated On: 08/02/2016 2:21 PM I attest to the content of the Intraoperative Record and orders documented therein, exceptions below
== END | disposition home or self-care (01) ==
LOC: C.GI 13:08
PROVIDERS: ATTEND Internal Medicine Gastroenterology
DX: R13.10 Dysphagia, unspecified (principal); T18.108A Unspecified foreign body in esophagus causing other injury, initial encounter; X58.XXXA Exposure to other specified factors, initial encounter; K20.0 Eosinophilic esophagitis; Z98.890 Other specified postprocedural states; Z88.1 Allergy status to other antibiotic agents; Z88.2 Allergy status to sulfonamides; Y93.89 Activity, other specified; Y92.89 Other specified places as the place of occurrence of the external cause; Y99.9 Unspecified external cause status

== ENCOUNTER → 2016-08-16 | Outpatient (CLI) | payer OTHER ==
[~2016-08-16] MED LIST changes: -LIDOCAINE HCL 2% 2 ML VIAL (20MG/ML) ONE; -MIDAZOLAM HCL 1 MG/ML 2ML VIAL ONE; +OPTIRAY 320 IV PRN; -PROPOFOL IV EMULSION 10 MG/ML 20 ML VIAL IV ONE; -SODIUM CHLORIDE 0.9% 500ML 500 ML IV ONE
--- NOTE | 2016-08-16 17:33 | DIAGNOSTIC IMAGING REPORT ---
CHEST CTA for PULMONARY ARTERIES CT DOSE: 190.72 mGy.cm HISTORY: Recurrent syncope. Positive d-dimer. TECHNIQUE: Multiaxial CT images of the chest were performed following the intravenous administration of contrast to evaluate the pulmonary arteries. Maximal intensity projection images were also obtained. COMPARISON STUDY: None. FINDINGS: There is a normal caliber thoracic aorta with no evidence for dissection. There is no evidence for pulmonary embolus. No pleural effusions. No pneumothorax. The liver and spleen are unremarkable. No mediastinal or hilar lymphadenopathy. The central airways are patent. The lungs are clear. Small amount of residual thymic tissue. IMPRESSION: No evidence for pulmonary embolus. Electronically signed by: Edilberto Vásquez M.D. 08/16/2016 5:32 PM Dictated Date/Time: 08/16/2016 5:26 PM
== END | disposition home or self-care (01) ==
LOC: C.CTS 16:47
PROVIDERS: ATTEND Family Medicine
DX: R55 Syncope and collapse (principal)